=== PATIENT | male | born 1955 | race Caucasian/White ===

== ENCOUNTER 2024-01-16 10:07 | Day surgery (SDC) | payer MEDICARE ==
[2024-01-16] MEDS ORDERED: Bupivacaine PF 0.5% 30 ML VIAL ONE (10:26)
[2024-01-16] MEDS ORDERED: CEFAZOLIN 2 GM VIAL ONE (11:48)
[2024-01-16] MEDS ORDERED: Dexamethasone 20 MG/5 ML VIAL ONE (11:53)
[2024-01-16] MEDS ORDERED: Lidocaine 1% PF 5 ML VIAL ONE (11:53)
[2024-01-16] MEDS ORDERED: Ondansetron PF 4 MG/2 ML Vial ONE (11:53)
[2024-01-16] MEDS ORDERED: PROPOFOL 20 ML ONE (11:54)
[2024-01-16] MEDS ORDERED: fentaNYL 50 mcg/mL 1 mL Vial ONE ×2 (11:54→12:17)
[2024-01-16] MEDS ORDERED: Neomycin-Polymyxin 1 ML AMP ONE (12:24)
[2024-01-16] MEDS ORDERED: ePHEDrine Sulfate 50 MG/10 ML VIAL ONE (12:51)
[2024-01-16] MEDS ORDERED: Triple Antibiotic Oint 1 GM Packet ONE (13:20)
== END 2024-01-16 15:10 | disposition home or self-care (01) ==
LOC: CSHSDC 10:07
PROVIDERS: ATTEND Podiatrist Foot & Ankle Surgery
PROC: 0SRM0JZ Replacement of Right Metatarsal-Phalangeal Joint with Synthetic Substitute, Open Approach (ICD-10-PCS; principal; 2024-01-16)
PROC: 0HBRXZX Excision of Toe Nail, External Approach, Diagnostic (ICD-10-PCS; 2024-01-16)
PROC: 0HBRXZX Excision of Toe Nail, External Approach, Diagnostic (ICD-10-PCS; 2024-01-16)
DX: M20.42 Other hammer toe(s) (acquired), left foot (principal); L60.0 Ingrowing nail; K60.1 Chronic anal fissure; C91.10 Chronic lymphocytic leukemia of B-cell type not having achieved remission; G47.33 Obstructive sleep apnea (adult) (pediatric); E78.1 Pure hyperglyceridemia; J30.9 Allergic rhinitis, unspecified; N40.0 Benign prostatic hyperplasia without lower urinary tract symptoms; E55.9 Vitamin D deficiency, unspecified; Z79.82 Long term (current) use of aspirin; Z79.899 Other long term (current) drug therapy; Z88.5 Allergy status to narcotic agent
CPT/HCPCS: 11750 ×2; 28285 ×2; 73620; C1713 ×2; J3010; J0665; J1100; J2405; J2704

== ENCOUNTER 2024-04-23 09:53 | Day surgery (SDC) | payer MEDICARE ==
[2024-04-22 12:06] VITALS: BMI 26.1
[2024-04-23] MEDS ORDERED: CEFAZOLIN 2 GM VIAL ONE (11:10)
[2024-04-23] MEDS ORDERED: Famotidine/PF 20 mg/2ml Vial ONE (11:40)
[2024-04-23] MEDS ORDERED: fentaNYL 50 mcg/mL 1 mL Vial ONE (11:42)
[2024-04-23] MEDS ORDERED: PROPOFOL 20 ML ONE (11:42)
[2024-04-23] MEDS ORDERED: Lidocaine 2% PF 5 ML VIAL ONE (11:43)
[2024-04-23] MEDS ORDERED: Bupivacaine PF 0.5% 30 ML VIAL ONE (11:49)
[2024-04-23] MEDS ORDERED: PHENYLEPHRINE-NS 100 MCG/ML 10 ML SYRINGE ONE (12:20)
[2024-04-23] MEDS ORDERED: Dexamethasone 4 mg/ml Vial ONE (12:38)
[2024-04-23] MEDS ORDERED: Ketorolac Tromethamine 30 MG (1 mL) VIAL ONE (12:38)
[2024-04-23] MEDS ORDERED: Ondansetron PF 4 MG/2 ML Vial ONE (12:38)
[2024-04-23] MEDS ORDERED: Triple Antibiotic Oint 1 GM Packet ONE (12:54)
== END 2024-04-23 14:15 | disposition home or self-care (01) ==
LOC: CSHSDC 09:53
PROVIDERS: ATTEND Podiatrist Foot & Ankle Surgery
PROC: 0QBR3ZZ Excision of Left Toe Phalanx, Percutaneous Approach (ICD-10-PCS; principal; 2024-04-23)
PROC: 0HBRXZZ Excision of Toe Nail, External Approach (ICD-10-PCS; 2024-04-23)
PROC: 0HBRXZZ Excision of Toe Nail, External Approach (ICD-10-PCS; 2024-04-23)
DX: M20.41 Other hammer toe(s) (acquired), right foot (principal); L20.0 Besnier's prurigo; L60.0 Ingrowing nail; G47.33 Obstructive sleep apnea (adult) (pediatric); E78.1 Pure hyperglyceridemia; Z79.51 Long term (current) use of inhaled steroids; Z79.899 Other long term (current) drug therapy; Z88.8 Allergy status to other drugs, medicaments and biological substances; Z98.890 Other specified postprocedural states
CPT/HCPCS: 11750; 28285 ×2; 73620; J0665; J1100; J1885; J2001; J2405; J2704; J3010; J3490

== ENCOUNTER 2024-10-15 10:28 | Day surgery (SDC) | payer MEDICARE ==
[2024-10-14 08:56] VITALS: BMI 25.7
[2024-10-15] MEDS ORDERED: PROPOFOL 0 ML ONE (11:29)
[2024-10-15] MEDS ORDERED: fentaNYL 50 mcg/mL 1 mL Vial ONE (11:29)
[2024-10-15] MEDS ORDERED: Lidocaine 1% PF 5 ML VIAL ONE (11:30)
[2024-10-15] MEDS ORDERED: CEFAZOLIN 2 GM VIAL ONE (11:58)
[2024-10-15] MEDS ORDERED: Bupivacaine PF 0.5% 30 ML VIAL ONE (11:58)
[2024-10-15] MEDS ORDERED: PROPOFOL 20 ML ONE (12:17)
[2024-10-15] MEDS ORDERED: Dexamethasone 4 mg/ml Vial ONE (12:25)
[2024-10-15] MEDS ORDERED: ePHEDrine Sulfate 50 MG/10 ML VIAL ONE (12:30)
[2024-10-15] MEDS ORDERED: Ondansetron PF 4 MG/2 ML Vial ONE (12:38)
== END 2024-10-15 14:01 | disposition home or self-care (01) ==
LOC: CSHSDC 10:28
PROVIDERS: ATTEND Podiatrist Foot & Ankle Surgery
PROC: 0SPQ04Z Removal of Internal Fixation Device from Left Toe Phalangeal Joint, Open Approach (ICD-10-PCS; principal; 2024-10-15)
PROC: 0HBRXZZ Excision of Toe Nail, External Approach (ICD-10-PCS; 2024-10-15)
DX: T84.84XA Pain due to internal orthopedic prosthetic devices, implants and grafts, initial encounter (principal); L60.0 Ingrowing nail; C91.10 Chronic lymphocytic leukemia of B-cell type not having achieved remission; G47.33 Obstructive sleep apnea (adult) (pediatric); E55.9 Vitamin D deficiency, unspecified; E78.00 Pure hypercholesterolemia, unspecified; R97.20 Elevated prostate specific antigen [PSA]; Z98.890 Other specified postprocedural states; Z88.8 Allergy status to other drugs, medicaments and biological substances; Z88.5 Allergy status to narcotic agent; Z79.51 Long term (current) use of inhaled steroids; Z79.899 Other long term (current) drug therapy; Y83.1 Surgical operation with implant of artificial internal device as the cause of abnormal reaction of the patient, or of later complication, without mention of misadventure at the time of the procedure
CPT/HCPCS: 11750; 20680; J0665; J1100; J2405; J2704; J3010

== ENCOUNTER 2025-09-28 06:56 | Day surgery (SDC) | payer MEDICARE ==
[2025-09-27 10:37] VITALS: BMI 25.8
[2025-09-28] MEDS ORDERED: CEFAZOLIN 2 GM VIAL ONE (07:07)
[2025-09-28] MEDS ORDERED: PROPOFOL 20 ML ONE (07:53)
[2025-09-28] MEDS ORDERED: Lidocaine 1% PF 5 ML VIAL ONE (07:54)
[2025-09-28] MEDS ORDERED: Ondansetron PF 4 MG/2 ML Vial ONE (09:04)
== END 2025-09-28 10:50 | disposition home or self-care (01) ==
LOC: CSHSDC 06:56
PROVIDERS: ATTEND Podiatrist Foot & Ankle Surgery
PROC: 0SPQ04Z Removal of Internal Fixation Device from Left Toe Phalangeal Joint, Open Approach (ICD-10-PCS; principal; 2025-09-28)
DX: T84.84XA Pain due to internal orthopedic prosthetic devices, implants and grafts, initial encounter (principal); Z88.5 Allergy status to narcotic agent; Z88.6 Allergy status to analgesic agent; Y83.1 Surgical operation with implant of artificial internal device as the cause of abnormal reaction of the patient, or of later complication, without mention of misadventure at the time of the procedure
CPT/HCPCS: 20680; 73620; J0665; J1100; J2405; J2704; J3010